=== PATIENT | female | born 1990 | race Caucasian/White ===

== ENCOUNTER 2016-07-09 11:21 | Emergency (ER) | payer OTHER ==
--- NOTE | 2016-07-09 12:03 | ER Document Report ---
ED Medical Screen (RME) - General Chief Complaint: Vag Bleeding, +preg <12wks Stated Complaint: ABNORMAL MENSTRAL BLEEDING Mode of Arrival: Ambulatory Information source: Patient TRAVEL OUTSIDE OF THE [place] IN LAST 30 DAYS: No - HPI Onset: Other - 07/06 Onset/Duration: Worse - TODAY Context: POS. URINE HCG @ HOME, , LMP 4/3 Quality of pain: Cramping Associated Symptoms: Vaginal bleeding Exacerbated by: Denies Relieved by: Denies - Related Data Allergies/Adverse Reactions: ciprofloxacin [From Cipro] Allergy (Verified 07/09/16 12:00) morphine Allergy (Verified 07/09/16 11:58) Penicillins Allergy (Verified 07/09/16 12:00) Past Medical History - General Information source: Patient - Social History Cigarette use (# per day): No Chew tobacco use (# tins/day): No Frequency of alcohol use: None Drug Abuse: None Family history: None Endocrine Medical History: Reports: Hx Hypothyroidism Renal/ Medical History: Denies: Hx Peritoneal Dialysis Past Surgical History: Reports: Hx Section - Immunizations Hx Diphtheria, Pertussis, Tetanus Vaccination: Yes Review of Systems - Review of Systems Constitutional: No symptoms reported Cardiovascular: No symptoms reported Respiratory: No symptoms reported Gastrointestinal: No symptoms reported Female Genitourinary: See HPI Physical Exam - Vital signs Vitals: Temp Pulse Resp BP Pulse Ox 98.5 F 60 18 120/61 100 07/09/16 11:39 07/09/16 11:39 07/09/16 11:39 07/09/16 11:39 07/09/16 11:39 Interpretation: Normal - General General appearance: Appears well, Alert In distress: None Course - Vital Signs Vital signs: Temp Pulse Resp BP Pulse Ox 98.5 F 60 18 120/61 100 07/09/16 11:39 07/09/16 11:39 07/09/16 11:39 07/09/16 11:39 07/09/16 11:39
[2016-07-09 12:28] LABS: ABSOLUTE BASOPHILS # (AUTO) 0.1 10^3/uL (0.0-0.2); ABSOLUTE EOSINOPHILS # (AUTO) 0.3 10^3/uL (0.0-0.6); ABSOLUTE MONOCYTES (AUTO) 0.5 10^3/uL (0.1-1.4); ABSOLUTE NEUT (AUTO) 4.4 10^3/uL (1.7-8.2); BASOPHILS % (AUTO) 1.1 % (0-2); EOSINOPHILS % (AUTO) 3.5 % (0-6); HEMATOCRIT 38.5 % (36.0-47.0); HEMOGLOBIN 12.7 g/dL (12.0-15.5); HGB HCT DIFFERENCE -0.4; MEAN CORPUSCULAR HEMOGLOBIN 28.5 pg (27.0-33.4); MEAN CORPUSCULAR HGB CONC 32.9 g/dL (32.0-36.0); MEAN CORPUSCULAR VOLUME 87 fl (80-97); MONOCYTES % (AUTO) 6.8 % (3-13); RED BLOOD COUNT 4.45 10^6/uL (3.72-5.28); SEGMENTED NEUTROPHILS % (AUTO) 60.6 % (42-78); WHITE BLOOD COUNT 7.3 10^3/uL (4.0-10.5)
[2016-07-09 12:47] LABS: ANION GAP 13 (5-19); BLOOD UREA NITROGEN 10 mg/dL (7-20); CALCIUM 9.6 mg/dL (8.4-10.2); CARBON DIOXIDE 26 mmol/L (22-30); CHLORIDE 104 mmol/L (98-107); CREATININE RESULT 0.79 mg/dL (0.52-1.25); GLUCOSE 81 mg/dL (75-110)
[2016-07-09] MEDS ORDERED: IBUPROFEN 800 MG TABLET PO ONE (13:29)
--- NOTE | 2016-07-09 13:30 | ER Document Report ---
HPI - HPI Patient complains to provider of: vaginal bleeding Onset: This morning Onset/Duration: Gradual Quality of pain: Cramping Pain Level: 3 Context: Patient states that her last menstrual cycle was on 06/08/16. Patient states that she had 2 positive home test and 1 negative home test. Patient reports having spotting today and lower pelvic cramping. Associated Symptoms: Other - Pelvic cramping, vaginal bleeding Exacerbated by: Denies Relieved by: Denies Similar symptoms previously: Yes Recently seen / treated by doctor: No - ROS ROS below otherwise negative: Yes Systems Reviewed and Negative: Yes All other systems reviewed and negative - CONSTITUTIONAL Constitutional: DENIES: Fever, Chills - GASTROINTESTINAL Gastrointestinal: REPORTS: Abdominal Pain - REPRODUCTIVE Reproductive: REPORTS: :, Abnormal bleeding / discharge - DERM Skin Color: Normal Skin Problems: None Past Medical History - General Information source: Patient Last Menstrual Period: June 08 - Social History Smoking Status: Never Smoker Cigarette use (# per day): No Chew tobacco use (# tins/day): No Frequency of alcohol use: None Drug Abuse: None Lives with: Family Family History: Reviewed & Not Pertinent Patient has suicidal ideation: No Patient has homicidal ideation: No Endocrine Medical History: Reports: Hx Hypothyroidism Renal/ Medical History: Denies: Hx Peritoneal Dialysis Past Surgical History: Reports: Hx Section - Immunizations Hx Diphtheria, Pertussis, Tetanus Vaccination: Yes Vertical Provider Document - CONSTITUTIONAL Agree With Documented VS: Yes Exam Limitations: No Limitations General Appearance: WD/WN, No Apparent Distress - INFECTION CONTROL TRAVEL OUTSIDE OF THE [place] IN LAST 30 DAYS: No - HEENT HEENT: Atraumatic, Normocephalic - NECK Neck: Normal Inspection - RESPIRATORY Respiratory: Breath Sounds Normal, No Respiratory Distress, Chest Non-Tender O2 Sat by Pulse Oximetry: 100 - CARDIOVASCULAR Cardiovascular: Regular Rate, Regular Rhythm, No Murmur - GI/ABDOMEN Gastrointestinal: Abdomen Soft, Abdomen Tender - Mild lower pelvic tenderness, no McBurney point tenderness - BACK Back: Normal Inspection. negative: CVA Tenderness-Right, CVA Tenderness-Left - MUSCULOSKELETAL/EXTREMETIES Musculoskeletal/Extremeties: ELIDA RIDLEY - NEURO Level of Consciousness: Awake, Alert, Appropriate Motor/Sensory: No Motor Deficit - DERM Integumentary: Warm, Dry, No Rash Course - Re-evaluation Re-evalutation: 07/09/16 13:29 Offered patient pelvic examination to rule out infection for cause of her irregular bleeding, patient declined stating she is not concerned about any kind of STD. - Vital Signs Vital signs: Temp Pulse Resp BP Pulse Ox 98.5 F 60 18 120/61 100 07/09/16 11:41 07/09/16 11:41 07/09/16 11:41 07/09/16 11:41 07/09/16 11:41 - Laboratory Result Diagrams: 07/09/16 12:10 07/09/16 12:10 Laboratory results interpreted by me: 07/09/16 13:29 Labs- Entire Visit 07/09/16 07/09/16 12:10 12:10 WBC 7.3 RBC 4.45 Hgb 12.7 Hct 38.5 MCV 87 MCH 28.5 MCHC 32.9 RDW 14.0 Plt Count 337 Seg Neutrophils % 60.6 Lymphocytes % 28.0 Monocytes % 6.8 Eosinophils % 3.5 Basophils % 1.1 Absolute Neutrophils 4.4 Absolute Lymphocytes 2.0 Absolute Monocytes 0.5 Absolute Eosinophils 0.3 Absolute Basophils 0.1 Sodium 143.0 Potassium 5.0 Chloride 104 Carbon Dioxide 26 Anion Gap 13 BUN 10 Creatinine 0.79 Est GFR ( Amer) > 60 Est GFR (Non-Af Amer) > 60 Glucose 81 Calcium 9.6 Beta HCG, Quant < 2.39 Total Beta HCG NEGATIVE 07/09/16 19:35 Discharge - Discharge Clinical Impression: Dysmenorrhea Condition: Stable Disposition: HOME, SELF-CARE Instructions: Dysmenorrhea ([facility]), Anti-Inflammatory Medication ([facility]) Additional Instructions: Return immediately for any new or worsening symptoms Followup with your primary care provider, call tomorrow to make a followup appointment Follow up with a registered respiratory technician for any continued problems or menstrual cycle irregularities Prescriptions: Naproxen [Naprosyn 250 Nmg Tablet] 1 tab PO BID #14 tablet Forms: Return to Work Referrals: MT NETTLES MD [Primary Care Provider] - Follow up as needed [facility] [Provider Group] - Follow up as needed
[2016-07-09 13:45] VITALS: BP 116/60
== END 2016-07-09 13:44 | disposition home or self-care (01) ==
LOC: ER 11:21
DX: N94.6 Dysmenorrhea, unspecified (principal); N93.9 Abnormal uterine and vaginal bleeding, unspecified; R10.2 Pelvic and perineal pain
CPT/HCPCS: 36415; 80048; 84702; 85025; 99284